=== PATIENT | male | born 1980 | race Caucasian/White ===

== ENCOUNTER 2022-06-02 18:26 | Emergency (ER) | payer MEDICAID, OTHER ==
[~2022-06-02] VITALS: Ht 175.3 cm; Wt 74.8 kg
[2022-06-02] MEDS ORDERED: LIDOCAINE HCL 1% 20 ML VIAL IJ ONE (19:15)
--- NOTE | 2022-06-02 20:11 | NUR ---
Patient placed in room 3a at this time.
[2022-06-02] MEDS ORDERED: LIDOCAINE HCL 1% 20 ML VIAL ONE ×2 (20:26→20:48)
[2022-06-02 20:54] VITALS: BP 122/75
--- NOTE | 2022-06-02 20:54 | NUR ---
Patient discharged to home in stable condition. Written and verbal after care instructions given. Patient verbalizes understanding of instructions. Stressed follow up or return to ER for worsening s/s.
== END 2022-06-02 20:54 | disposition home or self-care (01) ==
LOC: ER 18:32
DX: S01.511A Laceration without foreign body of lip, initial encounter (principal); W20.8XXA Other cause of strike by thrown, projected or falling object, initial encounter; Y93.H2 Activity, gardening and landscaping; Y92.017 Garden or yard in single-family (private) house as the place of occurrence of the external cause
CPT/HCPCS: 99283; 12011; J3490 ×2; A4663